=== PATIENT | female | born 1940 | race Caucasian/White ===

== ENCOUNTER 2016-06-16 07:38 | Observation (INO) | payer MEDICARE, OTHER ==
[~2016-06-16] VITALS: Ht 156.2 cm; Wt 61.0 kg
[~2016-06-16 07:38] MED LIST: ASPI-515 PO; B-12 PO; BUPIVACAINE/PF 0.5% ONE; BUPIVACAINE/PF-EPI 0.25% 1:200K ONE; CALC-649 PO; CHOL200024 PO; FLAX1000 PO; HYDR-3144 PO; LEVO75TA5 PO; MAGNESIUM PO; NEOSPORIN OINT, 15GM ONE; OMEP-110 PO; ROTI1PAT4 TD; VENL75TA PO
[2016-06-16] MEDS ORDERED: LACTATED RINGERS 1,000 ML IV SCH (08:47)
[2016-06-16 08:48] VITALS: BP 119/76
[2016-06-16] MEDS ORDERED: LIDOCAINE 1%, 2ML SQ PRN (09:00)
[2016-06-16] MEDS ORDERED: FENTANYL PF 250 MCG/5ML ONE (09:12)
[2016-06-16] MEDS ORDERED: MIDAZOLAM 1 MG/ML, 2ML ONE ×2 (09:12→11:14)
[2016-06-16] MEDS ORDERED: SUCCINYLCHOLINE 20 MG/ML, 10ML ONE (09:43)
[2016-06-16] MEDS ORDERED: KETOROLAC 30 MG/1 ML ONE (09:43)
[2016-06-16] MEDS ORDERED: CEFAZOLIN 1,000 MG ONE (09:43)
[2016-06-16] MEDS ORDERED: PHENYLEPHRINE 10 MG/ML ONE (09:43)
[2016-06-16] MEDS ORDERED: DEXAMETHASONE 4 MG/ML, 5ML ONE (09:43)
[2016-06-16] MEDS ORDERED: PROPOFOL 10 MG/ML, 20ML ONE (09:43)
[2016-06-16] MEDS ORDERED: ONDANSETRON 2MG/ML, 2ML ONE ×2 (09:43→11:50)
[2016-06-16] MEDS ORDERED: ONDANSETRON 2MG/ML, 2ML IVPush PRN ×2 (10:00→11:30)
[2016-06-16] MEDS ORDERED: hydrALAzine 20 MG/ML, 1ML IV PRN (10:00)
[2016-06-16] MEDS ORDERED: ACETAMINOPHEN 325 MG TABLET PO PRN (10:00)
[2016-06-16] MEDS ORDERED: ALBUTEROL/IPRATROPIUM 2.5MG/0.5MG, 3 ML NPPB PRN (10:00)
[2016-06-16] MEDS ORDERED: OXYcodone 5 MG/5 ML ORAL.SOL UDC PO PRN (10:00)
[2016-06-16] MEDS ORDERED: MEPERIDINE/PF 25MG/0.5ML IVPush PRN (10:00)
[2016-06-16] MEDS ORDERED: PROMETHAZINE 25 MG/ML, 1ML IV PRN (10:00)
[2016-06-16] MEDS ORDERED: LABETALOL 5MG/ML, 20ML IV PRN (10:00)
[2016-06-16] MEDS ORDERED: HYDROmorphone 1 MG/ML, 1ML ONE (10:35)
[2016-06-16] MEDS ORDERED: HYDROmorphone 2 MG/ML, 1ML ONE ×2 (11:03→12:02)
[2016-06-16] MEDS ORDERED: FENTANYL PF 100 MCG/2ML ONE ×2 (11:14→11:50)
[2016-06-16] MEDS ORDERED: OXYcodone 5 MG/5 ML ORAL.SOL UDC ONE (11:14)
[2016-06-16] MEDS ORDERED: ACETAMINOPHEN 325 MG TABLET ONE (11:14)
[2016-06-16] MEDS ORDERED: ACETAMINOPHEN 650 MG/20.3 ML UDC ONE (11:14)
[2016-06-16] MEDS: MIDAZOLAM 1 MG/ML, 2ML IV PRN ×2 (11:16→11:59)
[2016-06-16] MEDS ORDERED: ROTIGOTINE TD SCH (11:30)
[2016-06-16] MEDS ORDERED: PROMETHAZINE 25 MG/ML, 1ML IM PRN (11:30)
[2016-06-16] MEDS: FENTANYL PF 100 MCG/2ML IV PRN ×3 (11:30→12:03)
[2016-06-16] MEDS: HYDROmorphone 1 MG/ML, 1ML IV PRN ×2 (11:35→11:47)
[2016-06-16] MEDS ORDERED: MEPERIDINE/PF 25MG/0.5ML ONE (12:02)
[2016-06-16] MEDS ORDERED: MORPHINE SULFATE 4 MG/ML, 1ML ONE ×3 (15:30→16:36)
[2016-06-16] MEDS: morphine SULFATE 10 MG/ML, 1ML IVPush PRN ×3 (15:41→16:40)
[2016-06-16] MEDS: OXYcodone/APAP 5/325MG TABLET PO PRN ×2 (15:48→19:54)
[2016-06-16] MEDS ORDERED: METHOCARBAMOL 750 MG TABLET ONE (16:47)
[2016-06-16] MEDS ORDERED: METHOCARBAMOL 750 MG TABLET PO PRN (17:00)
[2016-06-16] MEDS ORDERED: LORazepam 0.5MG TABLET PO ONE (17:00)
[2016-06-17] MEDS ORDERED: LEVOTHYROXINE 75 MCG TABLET PO SCH (09:00)
[2016-06-17] MEDS ORDERED: MAGNESIUM CHLORIDE 64 MG TABLET.DR PO SCH (09:00)
[2016-06-17] MEDS ORDERED: CHOLECALCIFEROL 1,000 UNIT TABLET PO SCH (09:00)
[2016-06-17] MEDS ORDERED: VENLAFAXINE 75MG TABLET PO SCH (09:00)
[2016-06-17] MEDS ORDERED: OMEPRAZOLE 20 MG CAPSULE.DR PO SCH (09:00)
[2016-06-17] MEDS ORDERED: CALCIUM/VITAMIN D3 250-125 TABLET PO SCH (09:00)
== END 2016-06-16 21:45 | disposition home or self-care (01) ==
LOC: UNDOADMIN 07:38 → ORIP 07:38 → INTOOBSV 08:01 → MERGE 10:00 → 4NOR 17:30
PROVIDERS: ADMIT Orthopaedic Surgery Orthopaedic Surgery of the Spine; ATTEND Orthopaedic Surgery Orthopaedic Surgery of the Spine
DX: M46.1 Sacroiliitis, not elsewhere classified (principal); M46.98 Unspecified inflammatory spondylopathy, sacral and sacrococcygeal region; G89.29 Other chronic pain; Z90.710 Acquired absence of both cervix and uterus; Z98.890 Other specified postprocedural states
CPT/HCPCS: 27280; 71020; 72202; 76000; 93005; 96374; C1762; C1776; G0378; J0330; J0690; J1100; J1170; J1885; J2175; J2250; J2270; J2370; J2405; J2704; J3010; J7120; J3490